=== PATIENT | female | born 1950 | race Caucasian/White ===

== ENCOUNTER 2020-12-03 08:35 | Outpatient (CLI) | payer OTHER | END 2020-12-03 08:45 | disposition home or self-care (01) | LOC: SONOGRAMA 08:35 | PROVIDERS: ATTEND Family Medicine | DX: M70.62 Trochanteric bursitis, left hip (principal); M25.552 Pain in left hip ==

== ENCOUNTER 2022-06-04 08:48 | Outpatient (CLI) | payer OTHER | END 2022-06-04 08:52 | disposition home or self-care (01) | LOC: RAD 08:48 | PROVIDERS: ATTEND Family Medicine | DX: M19.041 Primary osteoarthritis, right hand (principal) ==